=== PATIENT | male | born 1940 | race Caucasian/White ===

== ENCOUNTER 2022-08-08 19:47 | Emergency (ER) | payer MEDICAID, MEDICARE, OTHER ==
[~2022-08-08] VITALS: Ht 162.6 cm; Wt 59.0 kg
[~2022-08-08 19:47] MED LIST: ASPI-1420 PO; BENA10TA74 PO; CLIN300C12 PO; GABA-532 PO; METF-440 PO; MULT-24 PO; SIMV10TA98 PO; TERA5CAP7 PO
--- NOTE | 2022-08-08 20:10 | NUR ---
DEYANIRA 89 FROM HOME FOR C/O GEN WEAKNESS X 1 DAY. PT AXO X0 ON ASSESSMENT AWAKE AND ALERT WITH NO RESPIRITORY DISTRESS. PT AFEBRILE ON ASSESSMENT CHANGED INTO GOWN AND PLACED ON MONITOR AND V/S WNL.
--- NOTE | 2022-08-08 20:12 | NUR ---
18G LAC. BLOOD AND CULTURES COLLECTED AND SENT TO LAB.
--- NOTE | 2022-08-08 20:13 | NUR ---
URINE COLLECTED AND SENT TO LAB
--- NOTE | 2022-08-08 20:30 | NUR ---
daughter, ta: [phone]
[2022-08-08 21:24] LABS: BASOPHILS % (AUTO) 0.1 % (0.0-2.0); HEMATOCRIT 35 % (39-51); HEMOGLOBIN 11.6 g/dL (13.5-17.5); LYMPHOCYTES # (AUTO) 1.4 K/uL (0.8-4.8); MEAN CORPUSCULAR HGB CONC 33 g/dl (31.0-36.0); MEAN CORPUSCULAR VOLUME 83 fL (80-96); MONOCYTES # (AUTO) 0.7 K/uL (0.1-1.30); MONOCYTES % (AUTO) 6.2 % (2.0-12.0); NEUTROPHILS # (AUTO) 8.5 K/uL (1.8-8.9); NEUTROPHILS % (AUTO) 80.7 % (43.0-81.0); PLATELET COUNT (AUTO) 155 K/uL (150-450); WHITE BLOOD COUNT (AUTO) 10.5 K/uL (4.3-11.0)
[2022-08-08 21:32] LABS: BILIRUBIN,URINE NEGATIVE (NEGATIVE); COLOR,URINE YELLOW (YELLOW); LEUKOCYTE ESTERASE ,URINE LARGE (NEGATIVE); NITRITE, URINE POSITIVE (NEGATIVE); PROTEIN,URINE 100 mg/dl (NEGATIVE); UGLUCOSE NEGATIVE (NEGATIVE)
[2022-08-08 21:43] LABS: BACTERIA,URINE MANY /HPF (None Seen); SQUAMOUS EPITHELIAL CELL,UR Rare /HPF (None Seen); WBC,URINE TOO NUMEROUS TO COUN /HPF (0-3)
[2022-08-08 22:25] LABS: CALCIUM, SERUM 9.1 mg/dL (8.5-10.1); CARBON DIOXIDE 29 mmol/L (21-32); CHLORIDE 100 mmol/L (98-107); CREATININE 1.6 mg/dL (0.6-1.3); GLUCOSE 250 mg/dL (74-106); POTASSIUM 4.3 mmol/L (3.5-5.1); SODIUM SERUM 137 mmol/L (136-145); UREA NITROGEN, BLOOD 28 mg/dL (7-18)
[2022-08-08 22:39] LABS: ALANINE AMINOTRANSFERASE 26 U/L (12-78); ALBUMIN 3.6 g/dL (3.4-5.0); ALKALINE PHOSPHATASE 73 U/L (46-116); ASPARTATE AMINOTRANSFERASE 19 U/L (15-37); BILIRUBIN,DIRECT 0.2 mg/dL (0.0-0.2); BILIRUBIN,TOTAL 0.6 mg/dL (0.2-1.0)
[2022-08-08] MEDS ORDERED: CEFTRIAXONE 1GM BAG (ER ONLY) 50 ML IV ONE (22:57)
[2022-08-08] MEDS: CEFTRIAXONE 1GM BAG (ER ONLY) 1 GM/50 ML PIGGYBACK IV ONE (23:00)
[2022-08-08 23:03] VITALS: BP 154/68
--- NOTE | 2022-08-08 23:05 | NUR ---
CALLED LAB FOR COVID SWAB
--- NOTE | 2022-08-08 23:27 | NUR ---
covid swabbed, sent to lab
[2022-08-08] MEDS: IV NS 0.9% 500 ML BAG IV ONE (23:33)
--- NOTE | 2022-08-08 23:34 | NUR ---
XRAY AT BEDSIDE
--- NOTE | 2022-08-08 23:46 | NUR ---
C/O [facility] AT [place] [facility]: MARY GOT ACCEPTED AT [facility], GOING TO ER ACCEPTING DR: DANELLE GILL # FOR REPORT: [phone] ALS TRANSPORTATION W/ [facility], ETA: [id number]
--- NOTE | 2022-08-08 23:56 | NUR ---
LAVELL, THE DAUGHTER WERE UPDATED RE TRANSFER
--- NOTE | 2022-08-09 00:06 | NUR ---
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 ON ONGOING HOLD TO GIVE REPORT TO GENA
--- NOTE | 2022-08-09 00:17 | NUR ---
REPORT GIVEN TO [facility]
--- NOTE | 2022-08-09 00:40 | NUR ---
PT PICKED UP BY [facility] FOR TRANSPORT TO [place] IN STABLE CONDITION
== END 2022-08-09 00:43 | disposition short-term general hospital (02) ==
LOC: ER 19:58
DX: R53.1 Weakness (principal); N39.0 Urinary tract infection, site not specified; Z20.822 Contact with and (suspected) exposure to COVID-19; R00.0 Tachycardia, unspecified; F03.90 Unspecified dementia, unspecified severity, without behavioral disturbance, psychotic disturbance, mood disturbance, and anxiety; E78.5 Hyperlipidemia, unspecified; I10 Essential (primary) hypertension; E11.9 Type 2 diabetes mellitus without complications; Z85.51 Personal history of malignant neoplasm of bladder; Z88.2 Allergy status to sulfonamides; Z79.82 Long term (current) use of aspirin; Z79.899 Other long term (current) drug therapy
CPT/HCPCS: 99285; 96365; 71045; 87426; 93005; 85025; 80048; 87040; 87086; 83605; 80076; 81001; 36415; 84484; 82962; J7040; J0696; C9803